=== PATIENT | female | born 1995 | race Caucasian/White ===

== ENCOUNTER → 2024-05-09 | Emergency (ER) | payer BC ==
[~2024-05-09] VITALS: Ht 162.6 cm; Wt 52.6 kg
[2024-05-09] MEDS: IV NS 0.9% 1,000 ML BAG IV ONE (11:15)
[2024-05-09 11:58] VITALS: BP 106/64; TEMP 98.7; O2SAT 99
== END | disposition left against medical advice (07) ==
LOC: ER 10:29
DX: F19.10 Other psychoactive substance abuse, uncomplicated (principal); R55 Syncope and collapse